=== PATIENT | female | born 1990 | race Caucasian/White ===

== ENCOUNTER 2018-07-24 11:17 | Emergency (ER) | payer BC ==
[2018-07-24 12:51] VITALS: BP 134/86
[2018-07-24] MEDS ORDERED: Ondansetron 4 MG/2 ML SDV IVPUSH ONE (14:25)
[2018-07-24] MEDS ORDERED: HYDROmorphone 1 MG/ML Syringe IVPUSH STA (14:25)
--- NOTE | 2018-07-24 14:28 | EDM.PDOC ---
ED HPI GENERAL MEDICAL PROBLEM - General Chief Complaint: Abdominal Pain Stated Complaint: ABDOMINAL PAIN- RT SIDE Time Seen by Provider: 07/24/18 14:13 Source of Information: Reports: Patient, Family (), RN Notes Reviewed History Limitations: Reports: No Limitations - History of Present Illness INITIAL COMMENTS - FREE TEXT/NARRATIVE: The patient states that she developed right lower quadrant abdominal pain yesterday, , 07/23/2018. She describes the pain as a constant dull ache, although it is becoming sharp. She has not identified any modifiers. Today she developed pain in her right flank and under her right lower ribs, with radiation to her right lower extremity. She has had nausea, but no emesis. No recent fever. No recent constipation or diarrhea. She denies having dysuria, but does report having urinary frequency today. No gross hematuria. The patient states that her symptoms are similar to when she had a kidney stone 2 years ago. The patient states that she took 800 mg of ibuprofen earlier today. Her LMP was 06/27/2018. She reports vaginal spotting this month. Her last oral food was around 07:30 this morning. The patient's PCP is Effie Alcantara. Right Abdomen Pain Score (Numeric/FACES): 6 - Related Data Allergies Allergy/AdvReac Type Severity Reaction Status Date / Time No Known Allergies Allergy Verified 10/26/14 19:22 Home Meds: Home Meds Acetaminophen/HYDROcodone [Alpha 325-5 MG] 1 - 2 tab PO Q6H PRN #30 tablet 07/24 [Rx] Multivitamin [Multivitamins] 1 tab PO DAILY 07/24/18 [History] Ondansetron [Zofran ODT] 1 tab PO Q8H PRN #15 tab.dis 07/24/18 [Rx] Tamsulosin HCl [Flomax] 1 cap PO DAILY PRN #5 cap.er.24h 07/24/18 [Rx] Past Medical History Genitourinary History: Reports: Renal Calculus Social & Family History - Tobacco Use Smoking Status *Q: Never Smoker - Caffeine Use Caffeine Use: Reports: Coffee, Tea - Alcohol Use Alcohol Use History: Yes Alcohol Use Frequency: Socially - Recreational Drug Use Recreational Drug Use: No - Living Situation & Occupation Living situation: Reports: , with Spouse, with Family (2 kids) Occupation: Employed (RN at the [employer]) ED ROS GENERAL - Review of Systems Review Of Systems: ROS reveals no pertinent complaints other than HPI. ED EXAM, GI/ABD - Physical Exam Exam: See Below Exam Limited By: No Limitations General Appearance: Alert, WD/WN, No Apparent Distress, Thin Eyes: Bilateral: Normal Appearance, EOMI Ears: Normal External Exam, Hearing Grossly Normal Nose: Normal Inspection Throat/Mouth: Normal Inspection, Normal Lips, Normal Voice, No Airway Compromise Head: Atraumatic, Normocephalic Neck: Normal Inspection, Full Range of Motion Respiratory/Chest: No Respiratory Distress, Lungs Clear, Normal Breath Sounds, No Accessory Muscle Use Cardiovascular: Normal Peripheral Pulses, Regular Rate, Rhythm, No Edema, No Gallop, No JVD, No Murmur, No Rub GI/Abdominal Exam: Normal Bowel Sounds, Soft, No Organomegaly, No Distention, No Abnormal Bruit, No Mass, Tender (Primarily in the low right lower quadrant/ pelvis, as well as in the right upper quadrant. Completely nontender elsewhere. Rovsing sign absent.) (Female) Exam: Deferred Rectal (Female) Exam: Deferred Back Exam: Normal Inspection, Full Range of Motion, CVA Tenderness (R) (minimal) . No: CVA Tenderness (L) Extremities: Normal Inspection, Normal Range of Motion, No Pedal Edema, Normal Capillary Refill Neurological: Alert, Oriented, Normal Cognition, No Motor/Sensory Deficits Psychiatric: Normal Affect Skin Exam: Warm, Dry, Intact, Normal Color, No Rash Course - Vital Signs Last Recorded V/S: Last Vital Signs Temp 36.7 C 07/24/18 12:48 Pulse 134 H 07/24/18 12:48 Resp 20 07/24/18 12:48 BP 134/86 07/24/18 12:48 Pulse Ox 100 07/24/18 12:48 - Orders/Labs/Meds Orders: Active Orders 24 hr Category Date Time Status Strain Urine [RC] ASDIRECTED Care 07/24/18 16:08 Active Labs: Laboratory Tests 07/24/18 07/24/18 07/24/18 Range/Units 13:35 14:01 14:01 WBC 10.92 H (3.98-10.04) K/mm3 RBC 5.00 (3.98-5.22) M/mm3 Hgb 14.6 (11.2-15.7) gm/L Hct 43.2 (34.1-44.9) % MCV 86.4 (79.4-94.8) fl MCH 29.2 (25.6-32.2) pg MCHC 33.8 (32.2-35.5) g/dl RDW Std Deviation 38.3 (36.4-46.3) fL Plt Count 195 (182-369) K/mm3 MPV 10.9 (9.4-12.3) fl Neutrophils % (Manual) 68 H (40-60) % Band Neutrophils % 0 (0-10) % Lymphocytes % (Manual) 25 (20-40) % Atypical Lymphs % 0 % Monocytes % (Manual) 6 (2-10) % Eosinophils % (Manual) 1 (0.7-5.8) % Basophils % (Manual) 0 L (0.1-1.2) Platelet Estimate Adequate RBC Morph Comment Normal Sodium 136 (136-145) mEq/L Potassium 3.3 L (3.5-5.1) mEq/L Chloride 100 (98-107) mEq/L Carbon Dioxide 26 (21-32) mEq/L Anion Gap 13.3 (5-15) BUN 12 (7-18) mg/dL Creatinine 1.0 (0.55-1.02) mg/dL Est Cr Clr Drug Dosing 69.90 mL/min Estimated GFR (MDRD) > 60 (>60) mL/min BUN/Creatinine Ratio 12.0 L (14-18) Glucose 90 (74-106) mg/dL Calcium 9.2 (8.5-10.1) mg/dL Total Bilirubin 0.8 (0.2-1.0) mg/dL AST 19 (15-37) U/L ALT 25 (14-59) U/L Alkaline Phosphatase 46 (46-116) U/L C-Reactive Protein < 0.2 (<1.0) mg/dL Total Protein 7.8 (6.4-8.2) g/dl Albumin 4.4 (3.4-5.0) g/dl Globulin 3.4 gm/dL Albumin/Globulin Ratio 1.3 (1-2) Lipase 170 (73-393) U/L HCG, Qual (NEGATIVE) Urine Color Light yellow (Yellow) Urine Appearance Clear (Clear) Urine pH 6.5 (5.0-8.0) Ur Specific Humphreys 1.010 (1.005-1.030) Urine Protein Negative (Negative) Urine Glucose (UA) Negative (Negative) Urine Ketones Trace H (Negative) Urine Occult Blood 3+ H (Negative) Urine Nitrite Negative (Negative) Urine Bilirubin Negative (Negative) Urine Urobilinogen 0.2 (0.2-1.0) Ur Leukocyte Esterase Negative (Negative) Urine RBC 0-5 (0-5) /hpf Urine WBC 0-5 (0-5) /hpf Ur Epithelial Cells 0-5 (0-5) /hpf Urine Bacteria Few (FEW) /hpf Urine Mucus Few (FEW) /hpf 07/24/18 Range/Units 14:01 WBC (3.98-10.04) K/mm3 RBC (3.98-5.22) M/mm3 Hgb (11.2-15.7) gm/L Hct (34.1-44.9) % MCV (79.4-94.8) fl MCH (25.6-32.2) pg MCHC (32.2-35.5) g/dl RDW Std Deviation (36.4-46.3) fL Plt Count (182-369) K/mm3 MPV (9.4-12.3) fl Neutrophils % (Manual) (40-60) % Band Neutrophils % (0-10) % Lymphocytes % (Manual) (20-40) % Atypical Lymphs % % Monocytes % (Manual) (2-10) % Eosinophils % (Manual) (0.7-5.8) % Basophils % (Manual) (0.1-1.2) Platelet Estimate RBC Morph Comment Sodium (136-145) mEq/L Potassium (3.5-5.1) mEq/L Chloride (98-107) mEq/L Carbon Dioxide (21-32) mEq/L Anion Gap (5-15) BUN (7-18) mg/dL Creatinine (0.55-1.02) mg/dL Est Cr Clr Drug Dosing mL/min Estimated GFR (MDRD) (>60) mL/min BUN/Creatinine Ratio (14-18) Glucose (74-106) mg/dL Calcium (8.5-10.1) mg/dL Total Bilirubin (0.2-1.0) mg/dL AST (15-37) U/L ALT (14-59) U/L Alkaline Phosphatase (46-116) U/L C-Reactive Protein (<1.0) mg/dL Total Protein (6.4-8.2) g/dl Albumin (3.4-5.0) g/dl Globulin gm/dL Albumin/Globulin Ratio (1-2) Lipase (73-393) U/L HCG, Qual Negative (NEGATIVE) Urine Color (Yellow) Urine Appearance (Clear) Urine pH (5.0-8.0) Ur Specific Humphreys (1.005-1.030) Urine Protein (Negative) Urine Glucose (UA) (Negative) Urine Ketones (Negative) Urine Occult Blood (Negative) Urine Nitrite (Negative) Urine Bilirubin (Negative) Urine Urobilinogen (0.2-1.0) Ur Leukocyte Esterase (Negative) Urine RBC (0-5) /hpf Urine WBC (0-5) /hpf Ur Epithelial Cells (0-5) /hpf Urine Bacteria (FEW) /hpf Urine Mucus (FEW) /hpf Meds: Medications Discontinued Medications Generic Name Dose Route Start Last Admin Trade Name Freq PRN Reason Stop Dose Admin Hydromorphone HCl 0.5 mg 07/24/18 14:25 07/24/18 14:47 Dilaudid IVPUSH 07/24/18 14:26 0.5 mg ONETIME STA Administration Sodium Chloride 1,000 mls @ 150 mls/hr 07/24/18 14:30 07/24/18 14:47 Normal Saline IV 150 mls/hr ASDIRECTED NILO Administration Ondansetron HCl 4 mg 07/24/18 14:25 07/24/18 14:47 Zofran IVPUSH 07/24/18 14:26 4 mg ONETIME ONE Administration Potassium Chloride 20 meq 07/24/18 16:12 07/24/18 16:43 Klor-Con M20 PO 07/24/18 16:13 20 meq ONETIME ONE Administration Tamsulosin HCl 0.4 mg 07/24/18 16:08 07/24/18 16:43 Flomax PO 07/24/18 16:09 0.4 mg ONETIME ONE Administration - Re-Assessments/Exams Free Text/Narrative Re-Assessment/Exam: 07/24/18 14:26 The etiology of the patient's symptoms is not immediately clear. She has both right pelvic and right upper quadrant tenderness, although she is more tender in the pelvis than the abdomen, suggesting a right ovarian cyst, although it could potentially be appendicitis. She has minimal right CVA tenderness, but states that her current symptoms are very similar to when she had a kidney stone about 2 years ago. I have ordered a urinalysis. If there is blood in the urine, I think we should proceed with a CT scan of the abdomen and pelvis without contrast to evaluate for a kidney stone. If there is no blood in urine, then a CT scan of her abdomen and pelvis with oral and IV contrast would be indicated, as well as, possibly, an ultrasound of her pelvis to rule out ovarian torsion. In the meantime, the patient will receive IV fluid, some IV Dilaudid, and IV Zofran. 07/24/18 16:10 Test results thus far discussed with the patient. The patient's urinalysis shows 3+ occult blood, but 0-5 RBCs. Is otherwise entirely normal, without suggestion of an infection. The patient's quantitative hCG is negative. The patient's WBC count is elevated at 10.92, but with 0% bandemia, insistent with demargination. The patient CMP is entirely normal, with the exception of her potassium mildly low at 3.3. The patient CRP is normal. The patient's lipase is normal. The patient's findings are most consistent with a ureterolith, therefore I have ordered a CT scan of the abdomen and pelvis without contrast, oral Flomax, and a urine strainer. I will order 20 mEq of oral potassium. 07/24/18 17:32 CT of the abdomen and pelvis without contrast is read by Dr. Bueno as: 1. Dilated right ureter caused by a 9.1 mm distal right ureteral stone at the UVJ. Given the size of the stone, uncertain if this will pass through the UVJ. 2. No additional abnormality is seen on noncontrast CT study of the abdomen and pelvis. 07/24/18 17:39 Test results discussed with the patient and her . I will discharge the patient home with prescriptions for Alpha, Flomax, and Zofran ODT. I would like her to take [id number] ibuprofen, in addition. She is to stay adequately hydrated and strain all of her urine. She is to contact the office of Dr. Filipe aguila thing 07/27/2018, in order to be seen as soon as possible. 07/24/18 17:49 I just wanted to be certain that more immediate treatment is not necessary, therefore I spoke to Dr. Suarez, Urologist on-call at [facility], at 17: 46. He agreed with my plan of discharging the patient home and making an appointment to be seen on Friday. If the patient's pain increases, and she does not feel that she can wait, she can either return here for reevaluation or just go directly to [place]. Departure - Departure Time of Disposition: 17:41 Disposition: Home, Self-Care 01 Condition: Fair Clinical Impression: Ureterolithiasis - Discharge Information *PRESCRIPTION DRUG MONITORING PROGRAM REVIEWED*: Not Applicable *COPY OF PRESCRIPTION DRUG MONITORING REPORT IN PATIENT ROSSY: Not Applicable Prescriptions: Acetaminophen/HYDROcodone [Alpha 325-5 MG] 1 - 2 tab PO Q6H PRN #30 tablet PRN Reason: Pain (Severe 7-10) Ondansetron [Zofran ODT] 1 tab PO Q8H PRN #15 tab.dis PRN Reason: Nausea/Vomiting Tamsulosin HCl [Flomax] 1 cap PO DAILY PRN #5 cap.er.24h PRN Reason: Pain Instructions: Kidney Stones Referrals: Effie Alcantara NP [Primary Care Provider] - Jeanmarie Dent MD [Ordering Only Provider] - Forms: ED Department Discharge Additional Instructions: You were seen in the emergency room for right lower abdominal pain radiating to your right flank, along with nausea and urinary urgency. Workup in the ER included blood work, a urinalysis, and a CT scan of your abdomen and pelvis without contrast. Your bloodwork found your potassium to be mildly low at 3.3. You were given oral potassium replacement in the ER. The CT scan found a 9.1 mm stone at the distal right ureter, just above the bladder. Given the size of the stone, the Radiologist does not feel that you will likely pass this stone on your own. Take [id number] ibuprofen, 2-3 tablets (400-600 mg) every 8 hours, with food. You may take 1-2 tablets of the opioid pain reliever Alpha up to every 6 hours, as needed for pain not relieved by ibuprofen. Take one tablet of the anti-spasm medicine Flomax every day, starting tomorrow, 07/25/2018, as needed for pain. Dissolve one tablet of the anti-nausea medicine Zofran on your tongue up to every 8 hours, as needed for nausea/vomiting. Stay adequately hydrated and strain all of your urine. In the unlikely event that you capture the stone, you may take it to your doctor for analysis. Contact the office of the Urologist Dr. Jeanmarie Dent, in [place], to make an appointment to be seen as soon as possible. Make sure that you let them know that you have a 9.1 mm stone at the UVJ. If, before you can see Dr. Dent, your pain increases and becomes unbearable, either return to the ER or go directly to [facility] ER. - My Orders Last 24 Hours: My Active Orders 07/24/18 16:08 Strain Urine [RC] ASDIRECTED - Assessment/Plan Last 24 Hours: My Active Orders 07/24/18 16:08 Strain Urine [RC] ASDIRECTED
[2018-07-24] MEDS ORDERED: Sodium Chloride 0.9% 1,000 ML IV SCH (14:30)
[2018-07-24] MEDS ORDERED: Tamsulosin 0.4 MG Cap.ER PO ONE (16:08)
[2018-07-24] MEDS ORDERED: Potassium Chloride 20 MEQ Tab.ER PO ONE (16:12)
--- NOTE | 2018-07-24 16:36 | CT ---
CT abdomen and pelvis Technique: Multiple axial sections were obtained from above the dome of the diaphragm inferiorly through the pubic symphysis. Intravenous and oral contrast not utilized. Study has been performed as a ureteral stone protocol. Comparison: No prior abdominal or pelvic CT exam is available. Findings: No abnormal calcifications are seen within the kidneys. Right ureter is dilated down to the UVJ. There is an obstructing stone within the distal right ureter at the UVJ measuring 9.1 mm. No other abnormal calcifications are seen along the course of the ureters. Small portion of the visualized lung bases shows nothing acute. Noncontrast appearance of the liver and spleen appears within normal limits. Adrenal glands show no nodule. Pancreas shows no discrete abnormality. Gallbladder contains no calcified gallstones. Aorta shows no aneurysm. No retroperitoneal adenopathy or mesenteric abnormalities are seen. No pelvic mass or adenopathy is seen. No free fluid or inflammatory change is seen. No findings of appendicitis is seen. Bone window settings were reviewed which appear within normal limits for the patient's age. Impression: 1. Dilated right ureter caused by a 9.1 mm distal right ureteral stone at the UVJ. Given the size of this stone, uncertain if this will pass through the UVJ. 2. No additional abnormality is seen on noncontrast CT study of the abdomen and pelvis. Diagnostic code #3
== END 2018-07-24 18:00 | disposition home or self-care (01) ==
LOC: JD.ED 11:17
DX: N20.1 Calculus of ureter (principal); Z79.899 Other long term (current) drug therapy
CPT/HCPCS: 36415; 74176; 80053; 81001; 83690; 84703; 85007; 85027; 86140; 96361; 96374; 96375; 99284; A9270; J1170; J2405; J7040

== ENCOUNTER 2020-02-26 07:14 | Inpatient (IN) | payer BC ==
[2020-02-26] MEDS ORDERED: Ondansetron 4 MG/2 ML SDV IVPUSH PRN (07:36)
[2020-02-26] MEDS ORDERED: Lidocaine 1% 50 ML MDV INJECT ONE (07:36)
[2020-02-26] MEDS ORDERED: Nalbuphine 10 MG/ML Syringe IVPUSH PRN (07:36)
[2020-02-26] MEDS ORDERED: Acetaminophen 325 MG Tab PO PRN (07:36)
[2020-02-26] MEDS ORDERED: Calcium Carbonate 500 MG Tab.Chew PO PRN (07:36)
[2020-02-26] MEDS ORDERED: Sodium Chloride 0.9% 10 ML Syringe FLUSH PRN (07:36)
[2020-02-26] MEDS ORDERED: Oxytocin/Lactated Ringers 10 UNIT/1,000 ML BAG IV SCH ×2 (07:45)
--- NOTE | 2020-02-26 07:54 | PCM.LDHP ---
<Juani Friend L - Last Filed: 02/26/20 08:15> L&D History of Present Illness - General Date of Service: 02/26/20 Admit Problem/Dx: Patient Status Order with Admit Dx/Problem 02/26/20 07:24 Patient Status [ADT] Routine 02/26/20 07:37 Patient Status [ADT] Routine Admission Diagnosis/Problem Admission Diagnosis/Problem Spontaneous rupture of amniotic membranes Source of Information: Patient History Limitations: Reports: No Limitations - History of Present Illness Introduction:: 30 year old female at 38w5d comes in due to feeling a gush of fluid at 6 am this morning. Currently her contractions are every 10-15 minutes with moderate cramping. care has been managed by Dr. Moreno without complications. Location, : Reports: Uterus Severity: Moderate - Related Data Allergies/Adverse Reactions: Allergies Allergy/AdvReac Type Severity Reaction Status Date / Time No Known Allergies Allergy Verified 10/26/14 19:22 Home Medications: Home Meds Acetaminophen/HYDROcodone [[place] 325-5 MG] 1 - 2 tab PO Q6H PRN #30 tablet 07/24/18 [Rx] Multivitamin [Multivitamins] 1 tab PO DAILY 07/24/18 [History] Ondansetron [Zofran ODT] 1 tab PO Q8H PRN #15 tab.dis 07/24/18 [Rx] Tamsulosin HCl [Flomax] 1 cap PO DAILY PRN #5 cap.er.24h 07/24/18 [Rx] Past Medical History - Past Health History Medical/Surgical History: Denies Medical/Surgical History Genitourinary History: Reports: Renal Calculus Other OB/BYN History: vag delivery 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 Denies: Shortness of Breath, Cough Cardiovascular: Reports: Edema (slight). Denies: Chest Pain Gastrointestinal: Reports: No Symptoms. Denies: Nausea, Vomiting Genitourinary: Reports: No Symptoms Musculoskeletal: Reports: No Symptoms Skin: Reports: No Symptoms Neurological: Reports: No Symptoms. Denies: Headache L&D Exam - Exam Exam: See Below - OB Specific Contraction Intensity: Mild to Moderate Movement: Active Heart Tones: Present - Grant Score Grant Score Effacement: >80% Grant Score Dilation: > 5 cm Grant Score Infant's Station: -1 ,0 - Exam General: Alert, Oriented HEENT: Conjunctiva Clear, Mucosa Moist & [place] Neck: Supple, Trachea Midline Lungs: Clear to Auscultation, Normal Respiratory Effort Cardiovascular: Regular Rate, Regular Rhythm Back Exam: Normal Inspection Extremities: Normal Inspection, Non-Tender, Pedal Edema (slight) Skin: Warm, Dry, Intact Psychiatric: Alert, Normal Affect, Normal Mood - Problem List (1) SNOMED Code(s): 27257132 ICD Code: Z34.90 - ENCNTR FOR SUPRVSN OF NORMAL , UNSP, UNSP TRIMESTER Status: Acute Current Visit: Yes Qualifiers: Weeks of gestation: 38 weeks Qualified Code(s): Z3A.38 - 38 weeks gestation of Problem List Initiated/Reviewed/Updated: Yes Orders Last 24hrs: Active Orders 24 hr Category Date Time Status Patient Status [ADT] Routine ADT 02/26/20 07:37 Active Activity as Tolerated [RC] PFP Care 02/26/20 07:37 Active Communication Order [RC] ASDIRECTED Care 02/26/20 07:37 Active Heart Tones [RC] ASDIRECTED Care 02/26/20 07:37 Active Non Stress Test [RC] PER UNIT ROUTINE Care 02/26/20 07:24 Active Notify Provider [RC] PFP Care 02/26/20 07:37 Active Notify Provider [RC] PRN Care 02/26/20 07:37 Active Peripheral IV Care [RC] . DIRECTED Care 02/26/20 07:37 Active Pump Management, Intrathecal [RC] ASDIRECTED Care 02/26/20 07:38 Active Urinary Catheter Assessment [RC] ASDIRECTED Care 02/26/20 07:36 Active Vital Signs [RC] PER UNIT ROUTINE Care 02/26/20 07:24 Active Regular Diet [DIET] Diet 02/26/20 Breakfast Active BLOOD BANK HOLD SPECIMEN [BBK] Stat Lab 02/26/20 07:36 Ordered CBC WITH AUTO DIFF [HEME] Stat Lab 02/26/20 07:36 Ordered CORONAVIRUS COVID-19 JEREMI [MOLEC] Stat Lab 02/26/20 07:39 Ordered RAPID PLASMA REAGIN,RPR [CHEM] Routine Lab 02/26/20 07:37 Ordered Acetaminophen [TylenoL] Med 02/26/20 07:36 Active 650 mg PO Q4H PRN Calcium Carbonate [Tums] Med 02/26/20 07:36 Active 1,000 mg PO Q2H PRN Lactated Ringers [Ringers, Lactated] 1,000 ml Med 02/26/20 07:45 Active IV ASDIRECTED Nalbuphine [Nubain] Med 02/26/20 07:36 Active 10 mg IVPUSH Q2H PRN Ondansetron [Zofran] Med 02/26/20 07:36 Active 4 mg IVPUSH Q4H PRN Oxytocin/Lactated Ringers [Pitocin in LR 10 Units/1,000 Med 02/26/20 07:45 Active ML] 10 unit in 1,000 ml IV .CONTINUOUS Oxytocin/Lactated Ringers [Pitocin in LR 10 Units/1,000 Med 02/26/20 07:45 Active ML] 10 unit in 1,000 ml IV TITRATE Sodium Chloride 0.9% [Saline Flush] Med 02/26/20 07:36 Active 10 ml FLUSH ASDIRECTED PRN Electronic Heart Tones Ext w TOCO [WOMSER] Oth 02/26/20 07:37 Ordered Routine Electronic Heart Tones Internal [WOMSER] Per Unit Ot 02/26/20 07:37 Ordered Routine Peripheral IV Insertion Adult [OM.PC] Routine Oth 02/26/20 07:37 Ordered Resuscitation Status Routine Resus Stat 02/26/20 07:24 Ordered Medication Orders Acetaminophen (Tylenol) 650 mg PO Q4H PRN PRN Reason: Pain (Mild 1-3) and fever Calcium Carbonate/Glycine (Tums) 1,000 mg PO Q2H PRN PRN Reason: Indigestion Lactated Ringer's (Ringers, Lactated) 1,000 mls @ 100 mls/hr IV ASDIRECTED NILO Oxytocin/Lactated Ringer's (Pitocin In Lr 10 Units/1,000 Ml) 10 unit in 1,000 mls @ 500 mls/hr IV .CONTINUOUS NILO Oxytocin/Lactated Ringer's (Pitocin In Lr 10 Units/1,000 Ml) 10 unit in 1,000 mls @ 12 mls/hr IV TITRATE NILO; Protocol Nalbuphine HCl (Nubain) 10 mg IVPUSH Q2H PRN PRN Reason: Pain Ondansetron HCl (Zofran) 4 mg IVPUSH Q4H PRN PRN Reason: Nausea/Vomiting Sodium Chloride (Saline Flush) 10 ml FLUSH ASDIRECTED PRN PRN Reason: Keep Vein Open Assessment/Plan Comment:: -Continue to monitor maternal and wellbeing -Pain management per patient preference <Chantal Stout - Last Filed: 02/26/20 08:51> L&D History of Present Illness - General Admit Problem/Dx: Patient Status Order with Admit Dx/Problem 02/26/20 07:24 Patient Status [ADT] Routine 02/26/20 07:37 Patient Status [ADT] Routine Admission Diagnosis/Problem Admission Diagnosis/Problem Spontaneous rupture of amniotic membranes - Patient Data Lab Results Last 24 hrs: Laboratory Results - last 24 hr 02/26/20 Range/Units 07:59 WBC 12.19 H (3.98-10.04) K/mm3 RBC 4.34 (3.98-5.22) M/mm3 Hgb 12.6 (11.2-15.7) gm/dl Hct 37.9 (34.1-44.9) % MCV 87.3 (79.4-94.8) fl MCH 29.0 (25.6-32.2) pg MCHC 33.2 (32.2-35.5) g/dl RDW Std Deviation 45.9 (36.4-46.3) fL Plt Count 206 (182-369) K/mm3 MPV 10.5 (9.4-12.3) fl Neut % (Auto) 73.4 H (34.0-71.1) % Lymph % (Auto) 18.7 L (19.3-51.7) % [place] % (Auto) 6.2 (4.7-12.5) % Eos % (Auto) 0.8 (0.7-5.8) Baso % (Auto) 0.2 (0.1-1.2) % Neut # (Auto) 8.95 H (1.56-6.13) K/mm3 Lymph # (Auto) 2.28 (1.18-3.74) K/mm3 [place] # (Auto) 0.75 H (0.24-0.36) K/mm3 Eos # (Auto) 0.10 (0.04-0.36) K/mm3 Baso # (Auto) 0.02 (0.01-0.08) K/mm3 Result Diagrams: 02/26/20 07:59 Problem List Initiated/Reviewed/Updated: Yes Orders Last 24hrs: Active Orders 24 hr Category Date Time Status Patient Status [ADT] Routine ADT 02/26/20 07:37 Active Activity as Tolerated [RC] PFP Care 02/26/20 07:37 Active Communication Order [RC] ASDIRECTED Care 02/26/20 07:37 Active Heart Tones [RC] ASDIRECTED Care 02/26/20 07:37 Active Non Stress Test [RC] PER UNIT ROUTINE Care 02/26/20 07:24 Active Notify Provider [RC] PFP Care 02/26/20 07:37 Active Notify Provider [RC] PRN Care 02/26/20 07:37 Active Peripheral IV Care [RC] . DIRECTED Care 02/26/20 07:37 Active Pump Management, Intrathecal [RC] ASDIRECTED Care 02/26/20 07:38 Active Urinary Catheter Assessment [RC] ASDIRECTED Care 02/26/20 07:36 Active Vital Signs [RC] PER UNIT ROUTINE Care 02/26/20 07:24 Active Regular Diet [DIET] Diet 02/26/20 Breakfast Active BLOOD BANK HOLD SPECIMEN [BBK] Stat Lab 02/26/20 07:36 Ordered CORONAVIRUS COVID-19 JEREMI [MOLEC] Stat Lab 02/26/20 07:39 Ordered RAPID PLASMA REAGIN,RPR [CHEM] Routine Lab 02/26/20 07:37 Ordered Acetaminophen [TylenoL] Med 02/26/20 07:36 Active 650 mg PO Q4H PRN Calcium Carbonate [Tums] Med 02/26/20 07:36 Active 1,000 mg PO Q2H PRN Lactated Ringers [Ringers, Lactated] 1,000 ml Med 02/26/20 07:45 Active IV ASDIRECTED Nalbuphine [Nubain] Med 02/26/20 07:36 Active 10 mg IVPUSH Q2H PRN Ondansetron [Zofran] Med 02/26/20 07:36 Active 4 mg IVPUSH Q4H PRN Oxytocin/Lactated Ringers [Pitocin in LR 10 Units/1,000 Med 02/26/20 07:45 Active ML] 10 unit in 1,000 ml IV .CONTINUOUS Oxytocin/Lactated Ringers [Pitocin in LR 10 Units/1,000 Med 02/26/20 07:45 Active ML] 10 unit in 1,000 ml IV TITRATE Sodium Chloride 0.9% [Saline Flush] Med 02/26/20 07:36 Active 10 ml FLUSH ASDIRECTED PRN Electronic Heart Tones Ext w TOCO [WOMSER] Oth 02/26/20 07:37 Ordered Routine Electronic Heart Tones Internal [WOMSER] Per Unit Ot 02/26/20 07:37 Ordered Routine Peripheral IV Insertion Adult [OM.PC] Routine Ot 02/26/20 07:37 Ordered Resuscitation Status Routine Resus Stat 02/26/20 07:24 Ordered Medication Orders Acetaminophen (Tylenol) 650 mg PO Q4H PRN PRN Reason: Pain (Mild 1-3) and fever Calcium Carbonate/Glycine (Tums) 1,000 mg PO Q2H PRN PRN Reason: Indigestion Lactated Ringer's (Ringers, Lactated) 1,000 mls @ 100 mls/hr IV ASDIRECTED NILO Last Admin: 02/26/20 08:12 Dose: 999 mls/hr Documented by: PETECHE Oxytocin/Lactated Ringer's (Pitocin In Lr 10 Units/1,000 Ml) 10 unit in 1,000 mls @ 500 mls/hr IV .CONTINUOUS NILO Oxytocin/Lactated Ringer's (Pitocin In Lr 10 Units/1,000 Ml) 10 unit in 1,000 mls @ 12 mls/hr IV TITRATE NILO; Protocol Nalbuphine HCl (Nubain) 10 mg IVPUSH Q2H PRN PRN Reason: Pain Ondansetron HCl (Zofran) 4 mg IVPUSH Q4H PRN PRN Reason: Nausea/Vomiting Sodium Chloride (Saline Flush) 10 ml FLUSH ASDIRECTED PRN PRN Reason: Keep Vein Open Assessment/Plan Comment:: Patient seen and examined with medical student. Agree with above.
[2020-02-26] MEDS: Lactated Ringers 1,000 ML IV SCH ×4 (08:12→16:35)
[2020-02-26] MEDS ORDERED: diphenhydrAMINE 50 MG/ML SDV IVPUSH PRN (09:03)
[2020-02-26] MEDS ORDERED: Bupivacaine/fentaNYL/NS 100 ML Bag EPIDUR PRN (09:03)
[2020-02-26] MEDS ORDERED: ePHEDrine 50 MG/ML SDV IVPUSH PRN (09:03)
[2020-02-26] MEDS ORDERED: fentaNYL 100 MCG/2 ML SDV EPIDUR PRN (09:03)
--- NOTE | 2020-02-26 09:48 | PCM.PREANE ---
Preanesthetic Assessment - Procedure Proposed Procedure: Continuous Labor Epidural - Anesthesia/Transfusion/Family Hx Anesthesia History: Prior Anesthesia Without Reaction Family History of Anesthesia Reaction: No - Review of Systems General: No Symptoms Pulmonary: No Symptoms Cardiovascular: No Symptoms Gastrointestinal: No Symptoms, Other (occasional GERD with ) Neurological: No Symptoms Other: Reports: None - Physical Assessment NPO Status Date: 02/26/20 (Full stomach) ASA Class: 1 Mental Status: Alert & Oriented x3 Airway Class: Mallampati = 1 Dentition: Reports: Normal Dentition Thyro-Mental Finger Breadths: 3 Mouth Opening Finger Breadths: 3 ROM/Head Extension: Full Lungs: Clear to Auscultation, Normal Respiratory Effort Cardiovascular: Regular Rate, Regular Rhythm - Lab Values: Laboratory Last Values WBC 12.19 K/mm3 (3.98-10.04) H 02/26/20 07:59 RBC 4.34 M/mm3 (3.98-5.22) 02/26/20 07:59 Hgb 12.6 gm/dl (11.2-15.7) 02/26/20 07:59 Hct 37.9 % (34.1-44.9) 02/26/20 07:59 MCV 87.3 fl (79.4-94.8) 02/26/20 07:59 MCH 29.0 pg (25.6-32.2) 02/26/20 07:59 MCHC 33.2 g/dl (32.2-35.5) 02/26/20 07:59 RDW Std Deviation 45.9 fL (36.4-46.3) 02/26/20 07:59 Plt Count 206 K/mm3 (182-369) 02/26/20 07:59 MPV 10.5 fl (9.4-12.3) 02/26/20 07:59 Neut % (Auto) 73.4 % (34.0-71.1) H 02/26/20 07:59 Lymph % (Auto) 18.7 % (19.3-51.7) L 02/26/20 07:59 [place] % (Auto) 6.2 % (4.7-12.5) 02/26/20 07:59 Eos % (Auto) 0.8 (0.7-5.8) 02/26/20 07:59 Baso % (Auto) 0.2 % (0.1-1.2) 02/26/20 07:59 Neut # (Auto) 8.95 K/mm3 (1.56-6.13) H 02/26/20 07:59 Lymph # (Auto) 2.28 K/mm3 (1.18-3.74) 02/26/20 07:59 [place] # (Auto) 0.75 K/mm3 (0.24-0.36) H 02/26/20 07:59 Eos # (Auto) 0.10 K/mm3 (0.04-0.36) 02/26/20 07:59 Baso # (Auto) 0.02 K/mm3 (0.01-0.08) 02/26/20 07:59 - Allergies Allergies/Adverse Reactions: Allergies Allergy/AdvReac Type Severity Reaction Status Date / Time No Known Allergies Allergy Verified 10/26/14 19:22 - Acknowledgements Anesthesia Type Planned: Epidural Pt an Appropriate Candidate for the Planned Anesthesia: Yes Alternatives and Risks of Anesthesia Discussed w Pt/Guardian: Yes Pt/Guardian Understands and Agrees with Anesthesia Plan: Yes PreAnesthesia Questionnaire - Past Health History Medical/Surgical History: Denies Medical/Surgical History Genitourinary History: Reports: Renal Calculus Other OB/BYN History: vag delivery 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 - HOME MEDS Home Medications: Home Meds Acetaminophen/HYDROcodone [[place] 325-5 MG] 1 - 2 tab PO Q6H PRN #30 tablet 07/24/18 [Rx] Multivitamin [Multivitamins] 1 tab PO DAILY 07/24/18 [History] Ondansetron [Zofran ODT] 1 tab PO Q8H PRN #15 tab.dis 07/24/18 [Rx] Tamsulosin HCl [Flomax] 1 cap PO DAILY PRN #5 cap.er.24h 07/24/18 [Rx] - CURRENT (IN HOUSE) MEDS Current Meds: Current Medications Acetaminophen (Tylenol) 650 mg PO Q4H PRN PRN Reason: Pain (Mild 1-3) and fever Calcium Carbonate/Glycine (Tums) 1,000 mg PO Q2H PRN PRN Reason: Indigestion Diphenhydramine HCl (Benadryl) 25 mg IVPUSH Q6H PRN PRN Reason: pruritis Ephedrine Sulfate (Ephedrine Sulfate) 5 mg IVPUSH ASDIRECTED PRN PRN Reason: Hypotension Fentanyl (Sublimaze) 100 mcg EPIDUR Q3H PRN PRN Reason: Pain Last Admin: 02/26/20 09:16 Dose: 100 mcg Documented by: Fentanyl/Bupivacaine HCl (Fentanyl/Bupivacaine/Ns 2 Mcg-0.125% 100 Ml) 100 ml EPIDUR ASDIRECTED PRN PRN Reason: Pain Last Admin: 02/26/20 09:16 Dose: 100 ml Documented by: Lactated Ringer's (Ringers, Lactated) 1,000 mls @ 100 mls/hr IV ASDIRECTED NILO Last Admin: 02/26/20 09:01 Dose: 999 mls/hr Documented by: Oxytocin/Lactated Ringer's (Pitocin In Lr 10 Units/1,000 Ml) 10 unit in 1,000 mls @ 500 mls/hr IV .CONTINUOUS NILO Oxytocin/Lactated Ringer's (Pitocin In Lr 10 Units/1,000 Ml) 10 unit in 1,000 mls @ 12 mls/hr IV TITRATE NILO; Protocol Nalbuphine HCl (Nubain) 10 mg IVPUSH Q2H PRN PRN Reason: Pain Ondansetron HCl (Zofran) 4 mg IVPUSH Q4H PRN PRN Reason: Nausea/Vomiting Sodium Chloride (Saline Flush) 10 ml FLUSH ASDIRECTED PRN PRN Reason: Keep Vein Open Discontinued Medications Lidocaine HCl (Xylocaine 1%) 20 ml INJECT ONETIME ONE Stop: 02/26/20 07:37
--- NOTE | 2020-02-26 11:01 | PCM.PNLD ---
Labor Progress Note - VS & Meds Active Medications: Current Medications Acetaminophen (Tylenol) 650 mg PO Q4H PRN PRN Reason: Pain (Mild 1-3) and fever Calcium Carbonate/Glycine (Tums) 1,000 mg PO Q2H PRN PRN Reason: Indigestion Diphenhydramine HCl (Benadryl) 25 mg IVPUSH Q6H PRN PRN Reason: pruritis Ephedrine Sulfate (Ephedrine Sulfate) 5 mg IVPUSH ASDIRECTED PRN PRN Reason: Hypotension Fentanyl (Sublimaze) 100 mcg EPIDUR Q3H PRN PRN Reason: Pain Last Admin: 02/26/20 09:16 Dose: 100 mcg Documented by: Fentanyl/Bupivacaine HCl (Fentanyl/Bupivacaine/Ns 2 Mcg-0.125% 100 Ml) 100 ml EPIDUR ASDIRECTED PRN PRN Reason: Pain Last Admin: 02/26/20 09:16 Dose: 100 ml Documented by: Lactated Ringer's (Ringers, Lactated) 1,000 mls @ 100 mls/hr IV ASDIRECTED NILO Last Admin: 02/26/20 10:18 Dose: 999 mls/hr Documented by: Oxytocin/Lactated Ringer's (Pitocin In Lr 10 Units/1,000 Ml) 10 unit in 1,000 mls @ 500 mls/hr IV .CONTINUOUS NILO Oxytocin/Lactated Ringer's (Pitocin In Lr 10 Units/1,000 Ml) 10 unit in 1,000 mls @ 12 mls/hr IV TITRATE NILO; Protocol Nalbuphine HCl (Nubain) 10 mg IVPUSH Q2H PRN PRN Reason: Pain Ondansetron HCl (Zofran) 4 mg IVPUSH Q4H PRN PRN Reason: Nausea/Vomiting Sodium Chloride (Saline Flush) 10 ml FLUSH ASDIRECTED PRN PRN Reason: Keep Vein Open Discontinued Medications Lidocaine HCl (Xylocaine 1%) 20 ml INJECT ONETIME ONE Stop: 02/26/20 07:37 - Uterine Contractions Contraction Intensity: Mild to Moderate Uterine Resting Tone: Soft - Monitoring Heart Rate (FHR) Baseline: 120 Heart Rate (FHR) Variability: Moderate (6-25 bmp) Accelerations: Present, 15x15 Decelerations: None Strip Review: Category I - Vaginal Exam Dilation (cm): 5 Effacement (Percent): 80 Station: -2 Cervical Position: Midposition - Labor Progress (Free Text) Labor Progress: Epidural in place. Comfortable. Progressing well. If no change in approximately one hour will initiate pitocin. Anticipate .
--- NOTE | 2020-02-26 17:05 | PCM.SN.2 ---
- Free Text/Narrative Note: Stage I - Patient presented with SROM. Epidural for anesthesia. Pitocin augmentation. Progressed to complete with overall reassuring heart tones. Some variable decelerations immediately prior to and with pushing. Stage II - of viable female, weight 7#12oz, 8/9 APGARS at 1642. Head delivered in controlled manner over intact perineum. Body and shoulders atraumatically. Tight body cord. To maternal abdomen. Pitocin initiated. Cord clamped and cut at one minute of life. Stage III - of intact placenta. 3vc. Small first degree laceration repaired with 3-0 vicryl. EBL 100.
[2020-02-26] MEDS ORDERED: Benzocaine/Menthol 20%-0.5% Spray 56 GM Canister TOP PRN (17:39)
[2020-02-26] MEDS ORDERED: Witch Hazel Medicated Pads 40/Jar TOP PRN (17:39)
[2020-02-26] MEDS ORDERED: Hydrocortisone Acetate 25 MG Supp RECTAL PRN (17:39)
[2020-02-26] MEDS: Ibuprofen 600 MG Tab PO PRN (18:42)
[2020-02-27] MEDS: Ibuprofen 600 MG Tab PO PRN ×2 (03:46→10:12)
--- NOTE | 2020-02-27 07:56 | PCM.DCSUM1 ---
Discharge Summary - Hospital Course Brief History: Admitted in active labor. Uncomplicated Diagnosis: Stroke: No - Discharge Data Discharge Date: 02/27/20 Discharge Disposition: Home, Self-Care 01 Condition: Good - Referral to Home Health Primary Care Physician: Keegan Moreno MD - Patient Instructions Diet: Usual Diet as Tolerated Activity: No Strenuous Activities Activity, Other: pelvic rest 6 weeks Driving: May Drive Today Notify Provider of: Fever, Increased Pain, Swelling and Redness, Drainage, Nausea and/or Vomiting - Discharge Plan *PRESCRIPTION DRUG MONITORING PROGRAM REVIEWED*: No *COPY OF PRESCRIPTION DRUG MONITORING REPORT IN PATIENT ROSSY: No Home Medications: Home Meds Ferrous Sulfate [Iron] 325 mg PO DAILY 02/26/20 [History] No122/Iron/Folic Acid [ Multi Tablet] 1 each PO DAILY 02/26/20 [History] Referrals: Keegan Moreno MD [Primary Care Provider] - (2 weeks) - Discharge Summary/Plan Comment DC Time >30 min.: No - General Info Date of Service: 02/27/20 Functional Status: Reports: Pain Controlled - Review of Systems General: Reports: No Symptoms HEENT: Reports: No Symptoms Pulmonary: Reports: No Symptoms Cardiovascular: Reports: No Symptoms Gastrointestinal: Reports: No Symptoms Genitourinary: Reports: No Symptoms Musculoskeletal: Reports: No Symptoms Skin: Reports: No Symptoms Neurological: Reports: No Symptoms Psychiatric: Reports: No Symptoms - Patient Data Vitals - Most Recent: Last Vital Signs Temp 35.7 C L 02/27/20 03:44 Pulse 69 02/27/20 03:44 Resp 16 02/27/20 03:44 BP 134/67 02/27/20 03:44 Pulse Ox 99 02/27/20 03:44 Weight - Most Recent: 73.119 kg I&O - Last 24 hours: Intake & Output 02/26/20 02/27/20 02/27/20 22:59 06:59 14:59 Intake Total 4202 Output Total 1600 Balance 2602 Lab Results - Last 24 hrs: Laboratory Results - last 24 hr 02/26/20 02/26/20 02/26/20 Range/Units 07:59 08:58 18:05 WBC 12.19 H (3.98-10.04) K/mm3 RBC 4.34 (3.98-5.22) M/mm3 Hgb 12.6 (11.2-15.7) gm/dl Hct 37.9 (34.1-44.9) % MCV 87.3 (79.4-94.8) fl MCH 29.0 (25.6-32.2) pg MCHC 33.2 (32.2-35.5) g/dl RDW Std Deviation 45.9 (36.4-46.3) fL Plt Count 206 (182-369) K/mm3 MPV 10.5 (9.4-12.3) fl Neut % (Auto) 73.4 H (34.0-71.1) % Lymph % (Auto) 18.7 L (19.3-51.7) % [place] % (Auto) 6.2 (4.7-12.5) % Eos % (Auto) 0.8 (0.7-5.8) Baso % (Auto) 0.2 (0.1-1.2) % Neut # (Auto) 8.95 H (1.56-6.13) K/mm3 Lymph # (Auto) 2.28 (1.18-3.74) K/mm3 [place] # (Auto) 0.75 H (0.24-0.36) K/mm3 Eos # (Auto) 0.10 (0.04-0.36) K/mm3 Baso # (Auto) 0.02 (0.01-0.08) K/mm3 SARS-CoV-2 RNA (JEREMI) Negative (NEGATIVE) Blood Type O NEGATIVE Gel Antibody Screen Positive Screen 1 ros/5 flds - neg RhIG Candidate? Yes Rhogam Indicated Yes, baby rh pos H Med Orders - Current: Current Medications Benzocaine/Menthol (Dermoplast Pain Relief [place]) 0 gm TOP ASDIRECTED PRN PRN Reason: Perineal Comfort Measure Last Admin: 02/26/20 18:42 Dose: 1 can Documented by: Hydrocortisone Acetate (Anucort-Hc) 25 mg RECTAL BID PRN PRN Reason: Hemorrhoid pain Ibuprofen (Motrin) 600 mg PO Q6H PRN PRN Reason: Mild pain or fever Last Admin: 02/27/20 03:46 Dose: 600 mg Documented by: Shelly Rubi (Adis) 1 pad TOP ASDIRECTED PRN PRN Reason: Pain Last Admin: 02/26/20 18:41 Dose: 1 container Documented by: Discontinued Medications Acetaminophen (Tylenol) 650 mg PO Q4H PRN PRN Reason: Pain (Mild 1-3) and fever Calcium Carbonate/Glycine (Tums) 1,000 mg PO Q2H PRN PRN Reason: Indigestion Diphenhydramine HCl (Benadryl) 25 mg IVPUSH Q6H PRN PRN Reason: pruritis Ephedrine Sulfate (Ephedrine Sulfate) 5 mg IVPUSH ASDIRECTED PRN PRN Reason: Hypotension Fentanyl (Sublimaze) 100 mcg EPIDUR Q3H PRN PRN Reason: Pain Last Admin: 02/26/20 09:16 Dose: 100 mcg Documented by: Fentanyl/Bupivacaine HCl (Fentanyl/Bupivacaine/Ns 2 Mcg-0.125% 100 Ml) 100 ml EPIDUR ASDIRECTED PRN PRN Reason: Pain Last Admin: 02/26/20 09:16 Dose: 100 ml Documented by: Lactated Ringer's (Ringers, Lactated) 1,000 mls @ 100 mls/hr IV ASDIRECTED NILO Last Admin: 02/26/20 16:35 Dose: 999 mls/hr Documented by: Oxytocin/Lactated Ringer's (Pitocin In Lr 10 Units/1,000 Ml) 10 unit in 1,000 mls @ 500 mls/hr IV .CONTINUOUS NILO Oxytocin/Lactated Ringer's (Pitocin In Lr 10 Units/1,000 Ml) 10 unit in 1,000 mls @ 12 mls/hr IV TITRATE NILO; Protocol Last Titration: 02/26/20 16:43 Dose: 166.5 munits/min, 999 mls/hr Documented by: Lidocaine HCl (Xylocaine 1%) 20 ml INJECT ONETIME ONE Stop: 02/26/20 07:37 Last Admin: 02/26/20 18:02 Dose: Not Given Documented by: Nalbuphine HCl (Nubain) 10 mg IVPUSH Q2H PRN PRN Reason: Pain Ondansetron HCl (Zofran) 4 mg IVPUSH Q4H PRN PRN Reason: Nausea/Vomiting Sodium Chloride (Saline Flush) 10 ml FLUSH ASDIRECTED PRN PRN Reason: Keep Vein Open - Exam General: Reports: Alert, Oriented HEENT: Reports: Pupils Equal, Pupils Reactive, EOMI, Mucous Membr. Moist/[place] Neck: Reports: Supple Lungs: Reports: Clear to Auscultation, Normal Respiratory Effort Cardiovascular: Reports: Regular Rate, Regular Rhythm GI/Abdominal Exam: Normal Bowel Sounds, Soft, Non-Tender, No Organomegaly, No Distention, No Abnormal Bruit, No Mass, Pelvis Stable Rectal (Female) Exam: Normal Exam, Normal Rectal Tone Back Exam: Reports: Normal Inspection, Full Range of Motion Extremities: Normal Inspection, Normal Range of Motion, Non-Tender, No Pedal Edema, Normal Capillary Refill Skin: Reports: Warm, Dry, Intact Wound/Incisions: Reports: Healing Well Neurological: Reports: No New Focal Deficit Psy/Mental Status: Reports: Alert, Normal Affect, Normal Mood
[2020-02-27 10:26] VITALS: BP 127/73; PULSE 80
== END 2020-02-27 17:30 | disposition home or self-care (01) | DRG 560 ==
LOC: JD.OB 07:14 → JD.OBCHECK 07:14 → JD.OB 07:37 → JD.OBCHECK 07:37 → OBSVTOIN 16:42 → JD.OB 16:43
PROVIDERS: ADMIT Obstetrics & Gynecology; ATTEND Obstetrics & Gynecology
PROC: 10E0XZZ Delivery of Products of Conception, External Approach (ICD-10-PCS; principal; 2020-02-26)
PROC: 3E0334Z Introduction of Serum, Toxoid and Vaccine into Peripheral Vein, Percutaneous Approach (ICD-10-PCS; principal; 2020-02-26)
PROC: 0HQ9XZZ Repair Perineum Skin, External Approach (ICD-10-PCS; 2020-02-26)
PROC: 3E0R3BZ Introduction of Anesthetic Agent into Spinal Canal, Percutaneous Approach (ICD-10-PCS; 2020-02-26)
DX: O69.1XX0 Labor and delivery complicated by cord around neck, with compression, not applicable or unspecified (principal); O70.0 First degree perineal laceration during delivery; Z3A.38 38 weeks gestation of pregnancy; Z37.0 Single live birth; O26.893 Other specified pregnancy related conditions, third trimester; Z67.41 Type O blood, Rh negative; Z20.828 Contact with and (suspected) exposure to other viral communicable diseases
CPT/HCPCS: 01967; 36415; 51702; 59025; 59409; 85025; 85461; 86850; 86870; 86900; 86901; A9270-GY; J2590; J2790; J3010; J7120; U0002

== ENCOUNTER 2021-12-01 05:21 | Inpatient (IN) | payer BC ==
[2021-12-01] MEDS ORDERED: Sodium Chloride 0.9% 10 ML Syringe FLUSH PRN (05:47)
[2021-12-01] MEDS ORDERED: Calcium Carbonate 500 MG Tab.Chew PO PRN (05:47)
[2021-12-01] MEDS ORDERED: Nalbuphine HCl 10 MG/ 1ML Amp IVPUSH PRN (05:47)
[2021-12-01] MEDS ORDERED: Ondansetron 4 MG/2 ML SDV IVPUSH PRN (05:47)
[2021-12-01] MEDS ORDERED: Lidocaine 1% 50 ML MDV INJECT ONE (05:47)
[2021-12-01] MEDS ORDERED: Lactated Ringers 1,000 ML IV SCH (06:00)
[2021-12-01] MEDS ORDERED: Oxytocin/Lactated Ringers 10 UNIT/1,000 ML BAG IV SCH ×2 (06:00)
[2021-12-01] MEDS ORDERED: Sodium Chloride 0.9% 10 ML Syringe FLUSH SCH (09:00)
[2021-12-01] MEDS ORDERED: Ibuprofen 600 MG Tab PO PRN (10:37)
[2021-12-01 16:49] VITALS: BP 113/77; PULSE 72
== END 2021-12-01 17:55 | disposition home or self-care (01) | DRG 560 ==
LOC: JD.OBCHECK 05:21 → JD.OB 05:32 → JD.OBCHECK 05:47 → OBSVTOIN 08:54 → JD.OB 08:55
PROVIDERS: ADMIT Obstetrics & Gynecology; ATTEND Obstetrics & Gynecology
PROC: 10E0XZZ Delivery of Products of Conception, External Approach (ICD-10-PCS; principal; 2021-12-01)
DX: O60.14X0 Preterm labor third trimester with preterm delivery third trimester, not applicable or unspecified (principal); Z3A.36 36 weeks gestation of pregnancy; Z37.0 Single live birth
CPT/HCPCS: 36415; 59025; 59409; 85025; 86592; A9270-GY; J2300; J2590

== ENCOUNTER 2023-01-13 21:55 | Emergency (ER) | payer BC ==
[2023-01-13 22:19] VITALS: PULSE 60
[2023-01-13 22:30] LABS: APPEARANCE,URINE CLEAR (Clear); BILIRUBIN,URINE NEGATIVE (Negative); COLOR,URINE LIGHT YELLOW (Yellow); GLUCOSE,URINE NEGATIVE (Negative); KETONES,URINE NEGATIVE (Negative); LEUKOCYTE ESTERASE,URINE 2+ (Negative); NITRITE,URINE NEGATIVE (Negative); OCCULT BLOOD,URINE 3+ (Negative); PROTEIN,URINE TRACE (Negative); UROBILINOGEN,URINE 0.2 (0.2-1.0)
[2023-01-13] MEDS ORDERED: Cefdinir 300 MG Cap PO ONE (22:35)
[2023-01-13 22:59] LABS: BACTERIA,URINE RARE /hpf (FEW); EPITHELIAL CELLS,URINE 0-5 /hpf (0-5); MUCUS,URINE NOT SEEN /hpf (FEW)
[2023-01-13 23:09] VITALS: BP 115/72
== END 2023-01-13 22:58 | disposition home or self-care (01) ==
LOC: JD.ED 21:55
DX: N39.0 Urinary tract infection, site not specified (principal)
CPT/HCPCS: 81001; 87086; 87088; 87186; 99283; 99284; A9270-GY